=== PATIENT | male | born 1965 | race Caucasian/White ===

== ENCOUNTER 2016-07-15 07:35 | Emergency (ER) | payer OTHER ==
[~2016-07-15 07:35] MED LIST: GLUC-91 PO; IBUP400T22 PO; LORA-610 PO; MAGN200T PO; MULT-1018 PO; OMEP-113 PO; PSYL0.5211 PO
[2016-07-15 07:36] VITALS: BP 154/102; PULSE 87; RESP 14; O2SAT 96
[2016-07-15] MEDS ORDERED: Ondansetron 2 mg/mL 2 mL Inj IVPUSH ONE (08:10)
--- NOTE | 2016-07-15 08:23 | DRSVH ---
PROCEDURE: X-RAY CHEST ONE VIEW, PORTABLE ([id number]) INDICATIONS: CP TECHNIQUE: One view of the chest was acquired. COMPARISON: None. FINDINGS: Surgical changes and devices: None. Lungs and pleura: No pleural effusions or pneumothorax. Lungs are clear. Mediastinum: Mediastinal contours appear normal. Heart size is normal. Bones and chest wall: No suspicious bony lesions. Overlying soft tissues appear unremarkable. IMPRESSION: Mildly reduced inspiratory volume, a definite source of sudden onset chest pain is not se en. Dictated by: Vidal Garduno M.D. on 07/15/2016 at 8:21 Approved by: Vidal Garduno M.D. on 07/15/2016 at 8:21
--- NOTE | 2016-07-15 08:27 | ED.REPORT ---
HPI-Chest Pain 40 and Over Date of Service Jul 15, 2016 ED Provider: Robert Orellana DO History of Present Illness: Mr. Saeed is a pleasant 51-year-old male with past medical history significant for GERD, vasovagal episodes with bowel movement, and umbilical hernia repair with no prior cardiac history who presents to the [facility] emergency Department for 4 hour history of acute onset chest pain 7/10 this morning, with inspiration as well as epigastric abdominal pain, mild headache, mild shortness of breath, nausea, mild left flank pain radiating anteriorly over along the 11th rib, and report of tingling down both upper extremities and right leg that has since resolved. He denies syncope, fall, change in vision or hearing, confusion, diaphoresis, flushing, and constipation diarrhea. Nursing Notes Stated Complaint: CHEST PAIN/SOB Chief Complaint: Chest Pain Nursing Notes Reviewed: Yes Allergies: Coded Allergies: diphenhydramine HCl (Verified Allergy, Unknown, 09/03/14) Uncoded Allergies: SULFA (Allergy, Unknown, 09/03/14) Scheduled Loratadine (Loratadine) 10 Mg Tab.rapdis 10 MG PO DAILY Magnesium (Magnesium) 200 Mg Tablet 200 MG PO BID Multivitamin (Multi Vitamin Daily) 1 Each Tablet 1 EACH PO DAILY Omeprazole Magnesium (Omeprazole) 20 Mg Capsule.dr 20 MG PO DAILY Psyllium Husk (Metamucil) 0.52 Gm Capsule 0.52 GM PO DAILY Scheduled PRN Ibuprofen (Ibuprofen) 400 Mg Tablet 400 MG PO QID PRN PRN For Pain Ondansetron ODT (Zofran ODT) 4 Mg Tablet 4 MG PO Q4H PRN PRN For Nausea Miscellaneous Medications Gluc/Bladimir-MSM#1/Vit C/Severino/Bor (Vqbybhj-Ofvxw-MFG Complex Cplt) 1 Each Tablet 1 EACH PO General Time Seen by MD: 07:45 Chief Complaint Chest pain Hx Obtained From: Patient, Spouse Sudden in Onset?: Yes Onset Occurred: 1 - 4 hours ago Past Medical History Past Medical History Denies any major medical problems Past Surgical History umbilcal hernia surgery Reports: Inguinal hernia repair Smoking History Never Smoker Review of Systems Review of Systems Note: A comprehensive review of systems was conducted with the patient and found to be negative except as above in the History of Present Illness. Physical Exam Physical Exam Notes: General: Middle aged gentleman lying in bed in mild acute distress, well-developed, well-nourished, appropriately interactive HEENT: Normocephalic, atraumatic. External ears without defect. Pupils equal, round, and reactive to light and accommodation. Anicteric sclerae, moist conjunctivae, and no lid lag. Oropharynx free of erythema and cobble stoning with moist mucosa. Neck: Supple with full range of motion. No jugular venous distension. No bruits. No lymphadenopathy or thyromegaly. Cardiovascular: Regular rate and rhythm with no murmurs, rubs, or gallops appreciated Pulmonary: Clear to auscultation bilaterally with no crackles, wheezes, or rhonchi. Normal respiratory effort with no use of accessory muscles. Chest pain with deep inspiration. Abdomen: Bowel tones present. Obese, diffusely tender to palpation in the epigastrum and along the left flank, nondistended. No hepatosplenomegaly or masses appreciated. Central and oblong 6-10 cm abdominal hernia present with increased abdominal pressure. RUQ non tender to palpation. Extremities: No clubbing, cyanosis, edema, or lymphadenopathy appreciated. Skin: Normal temperature, turgor, and texture; no rash, ulcers, or subcutaneous nodules appreciated. Neurological: Cranial nerves grossly intact. Normal muscle strength, tone, and bulk. Reflexes, coordination, and sensory function within normal limits. No known gait impairment. Psychiatric: Normal mood and affect. Alert and oriented to person, place, and time. Initial Vital Signs Vital Signs (First) Date Time Temp Pulse Resp B/P Pulse Ox O2 Delivery O2 Flow Rate FiO2 07/15/16 07:36 35.7 87 14 154/102 96 Room Air Interpretation & Diagnostics Lab Results Interpretation Result Diagram: 07/15/16 0825 07/15/16 0825 Test 07/15/16 08:25 07/15/16 08:35 07/15/16 10:35 White Blood Count 8.4th/mm3 (3.8-10.1) Red Blood Count 5.30mil/mm3 (4.40-5.80) Hemoglobin 16.1g/dL (13.8-17.2) Hematocrit 46.8% (41.0-50.0) Mean Corpuscular Volume 88.3fL (81-100) Mean Corpuscular Hemoglobin 30.4pg (27.0-35.0) Mean Corpuscular Hemoglobin Concent 34.4% (32.0-37.0) Red Cell Distribution Width 12.1% (12.3-15.4) Platelet Count 222bil/L (150-400) Neutrophils (%) (Auto) 63.7% (40-74) Lymphocytes (%) (Auto) 24.9% (14-46) Monocytes (%) (Auto) 9.8% (4-12) Eosinophils (%) (Auto) 0.6% (0-5) Basophils (%) (Auto) 0.6% (0-3) Sodium Level 139mEq/L (134-144) Potassium Level 4.1mEq/L (3.5-5.2) Chloride Level 103mEq/L (97-108) Carbon Dioxide Level 20mmol/L (18-29) Blood Urea Nitrogen 17mg/dL (6-24) Creatinine 0.67mg/dL (0.76-1.27) Estimat Glomerular Filtration Rate 133mL/min (>59) Glucose Level 137mg/dL (60-99) Calcium Level 9.1mg/dL (8.5-10.1) Magnesium Level 1.9mg/dL (1.6-2.6) Total Bilirubin 0.8mg/dL (0.0-1.2) Aspartate Amino Transf (AST/SGOT) 46U/L (0-50) Alanine Aminotransferase (ALT/SGPT) 40U/L (0-44) Alkaline Phosphatase 124U/L (25-150) Total Protein 6.9g/dL (6.4-8.4) Albumin 4.1g/dL (3.4-5.0) Lipase 62U/L (13-60) Lactic Acid Level 1.9mmol/L (0.4-2.0) Troponin T < 0.010ug/L (0.0-0.011) Procedures Procedure Notes: Re-Eval/Medical Decision Med Decision/Clinical Course Attending note: I saw and personally evaluated this patient. While the patient reported that he had chest discomfort, on exam and history it seems that he has epigastric and left upper quadrant abdominal pain. Given pain above and below the diaphragm associated with a peripheral paresthesia in the extremities there was concern for aortic dissection, CT chest and abdomen was negative except for cholelithiasis. Serial troponins are negative, patient has not redemonstrated chest discomfort in the ER, EKG nonischemic, overall not likely to be acute coronary syndrome. In regard to abdominal pain and cholelithiasis, he is a trivial elevation of his lipase is not clinically significant, he does not have right upper quadrant pain on either my initial or recurrent physical exam. His LFTs and white blood cell count are normal. This does not seem to represent acute cholecystitis or other life-threatening pathology. Patient is reassured by the workup and discharge instructions are discussed verbally. Discharge & Departure Primary Impression: Cholelithiases Additional Impression: Non-cardiac chest pain Disposition: Home Discharge Condition All VS Reviewed: Yes Condition: Stable Patient Instructions: Chest Pain (ED), Cholecystitis (ED) Additional Instructions: During you visit to [facility] Emergency Department we obtained blood work for infectious markers, hemoglobin levels, electrolytes, lipase and troponins ( chemical health of your heart). We also obtained high resolution imaging of your abdomen and pelvis with IV contrast. All your lab values were within normal limits with a slightly elevated lipase (pancreas enzyme, still at acceptable levels )and your imaging showed gallstones in your gall bladder and no other acute processes or abnormalities. We will send you home with - Nausea medications (Dissolvable Zofran) Do not hesitate to call emergency services or your primary care physician if you experience any of the following. -High fevers. -Uncontrolled vomiting. -Severe hypertension. -Syncope or loss of consciousness. -Chest pain -Severe shortness of breath. You are more susceptible to gallstones so you should begin eating a low fat diet and increase your vegetable intake. Follow up with your primary care physician in 1-2 weeks time following your emergency department visit for medication checks and general well-being. Referrals: Natalio King MD (PCP) Attending Statement The patient was seen and examined together with Dr. Gordillo on 07/15/16 and I have added additional information to the note above. copies to: Natalio King MD, COREY P DO Jul 15, 2016 08:05 Robert Orellana DO Jul 15, 2016 12:35
[2016-07-15 08:36] LABS: BASOPHILS % (AUTO) 0.6 % (0-3); EOSINOPHILS % (AUTO) 0.6 % (0-5); MONOCYTES % (AUTO) 9.8 % (4-12); Mean Corpuscular Hemoglobin 30.4 pg (27.0-35.0); Mean Corpuscular Volume 88.3 fL (81-100); NEUTROPHILS % (AUTO) 63.7 % (40-74); Platelet Count 222 bil/L (150-400)
[2016-07-15 09:04] LABS: Magnesium 1.9 mg/dL (1.6-2.6)
[2016-07-15 09:15] LABS: TROPONIN T < 0.010 ug/L (0.0-0.011)
[2016-07-15 09:29] VITALS: BP 133/100; PULSE 89
--- NOTE | 2016-07-15 10:13 | DRSVH ---
PROCEDURE: CT ANG CHEST/ABD W/WO CONTRAST ([id number]) INDICATIONS: Chest pain/abd pain, numbness of U extremities TECHNIQUE: Precontrast 5 mm thick sections acquired from the lung apices to the iliac crests. After the adminis tration of intravenous contrast, 3 mm thick sections again acquired from the lung apices to the iliac crests. 3-dimensional maximum intensity projection (MIP) oblique sagittal and coronal reformats wer e then acquired, and/or 3-dimensional volume rendering reformats. For radiation dose reduction, the following was used: automated exposure control. COMPARISON: None. FINDINGS: Image quality: Excellent. AORTA: Intramural hematoma: Absent Maximum hematoma thickness: Not applicable. Focal contrast enhancement: Intramural blood pool (< 2 mm neck or imperceptible communication with aortic lumen): Absent. Ulcer-like projection (broad communication with aortic lumen > 3 mm): Absent. Dissection: Absent Sparland classification: Not applicable. Maximum aortic diameter: 3.9 cm. [If Spar[place] A dissection, > 5.0 cm has a poorer prognosis. If [place] B dissection, > 4.0 cm has a poorer prognosis.] Periaortic hematoma: Absent. CHEST: Lungs and pleura: No acute airspace opacities. No pleural effusions or pneumothorax. Central and p eripheral airways are patent and normal in caliber. Mediastinum: Heart size is normal. No pericardial effusion. No mediastinal or hilar adenopathy by size criteria. Central pulmonary arteries are normal in size. Esophagus is normal in caliber. No h iatal hernias. Bones and chest wall: No axillary adenopathy by size criteria. Thyroid gland is within normal limit s where visualized. No suspicious bony lesions. No vertebral body compression fractures. ABDOMEN: Vasculature: Celiac trunk and mesenteric arteries are patent. Renal arteries are also patent. Solid organs: Liver and spleen are normal in size. Gallbladder contains multiple small stones.. Bi liary system is non dilated. Pancreas enhances normally. No adrenal nodules. Both kidneys are norm al in size and enhancement, without hydronephrosis. Small right renal cyst is noted. Peritoneum and bowel: No free fluid or air. Bowel loops are normal in caliber and wall thickness. Nodes and vessels: No retroperitoneal or mesenteric adenopathy by size criteria. Inferior vena cava is normal in morphology. Bones: No suspicious bony lesions. No vertebral body compression fractures. Miscellaneous: No ventral hernias. IMPRESSION: 1. No evidence of aortic dissection or aortic aneurysm. 2. Lungs are clear of acute opacities. 3. Cholelithiasis. 4. No free intraperitoneal fluid or air. 5. No dilated loops of bowel. Dictated by: Miryam Mckeon MD, PhD on 07/15/2016 at 10:11 Approved by: Miryam Mckeon MD, PhD on 07/15/2016 at 10:11
[2016-07-15] MEDS ORDERED: ONDA4TAB9 PO (11:36)
[2016-07-15 11:59] VITALS: BP 117/96; PULSE 82; RESP 11; O2SAT 95
== END 2016-07-15 12:00 | disposition home or self-care (01) ==
LOC: SED 07:35
DX: K80.20 Calculus of gallbladder without cholecystitis without obstruction (principal); R07.89 Other chest pain; Z88.8 Allergy status to other drugs, medicaments and biological substances
CPT/HCPCS: 36415; 71010; 71275; 74175; 80053; 82948; 83605; 83690; 83735; 84484; 85025; 93005; 96374; 96375; 99285; J2270; J2405; Q9967